=== PATIENT | female | born 1960 | race Caucasian/White ===

== ENCOUNTER 2017-08-18 03:00 | Emergency (ER) | payer MEDICAID, OTHER ==
--- NOTE | 2017-08-18 03:27 | EDPHY ---
H & P Source: Patient, EMS Exam Limitations: Clinical condition Time Seen by Provider: 08/18/17 03:01 HPI/ROS: HPI The patient presents brought in by ambulance on a mental health hold. She has had manic behavior as well as delusions and visual hallucinations for the last 1 day. She called the [facility] twice today because she thought someone was in her house. The deputy chief sheriff's eventually were concerned and called paramedics. The patient was somewhat agitated, swatting at the paramedics and was given Versed 5 mg IM. Otherwise, she is complaining of a cough and sore throat. Initial saturations were 89%. On review of records, in 2008 the patient was in the emergency department for similar presentation and was transferred to Psychiatry. REVIEW OF SYSTEMS Constitutional: No fever, no chills. Eyes: No discharge. ENT: No sore throat. Cardiovascular: No chest pain, no palpitations. Respiratory: No cough, no shortness of breath. Gastrointestinal: No abdominal pain, no vomiting. Genitourinary: No hematuria. Musculoskeletal: No back pain. Skin: No rashes. Neurological: No headache. PMHx: States lupus Soc Hx: Housed, denies drugs and alcohol PHYSICAL General Appearance: Alert, no distress, coughing occasionally Eyes: Pupils equal and round no pallor or injection ENT, Mouth: Mucous membranes moist Respiratory: There are no retractions, lungs are clear to auscultation Cardiovascular: Regular rate and rhythm Gastrointestinal: Abdomen is soft and non-tender, no masses, bowel sounds normal Neurological: A&O, moves all extremities Skin: Warm and dry, no rashes Musculoskeletal: Neck is supple non tender Extremities: symmetrical, full range of motion Psychiatric: Patient is oriented X 3, patient appears agitated (Riguzzi,Jessica) Constitutional: Initial Vital Signs Temperature (C) 36.9 C 08/18/17 03:42 Heart Rate 87 08/18/17 03:42 Respiratory Rate 20 08/18/17 03:42 Blood Pressure 151/88 H 08/18/17 03:42 O2 Sat (%) 91 L 08/18/17 03:42 O2 Delivery Mode Room Air Allergies/Adverse Reactions: Penicillins Allergy (Intermediate, Verified 08/18/17 03:42) Home Medications: Medication Instructions Recorded Ativan 09/08/13 Estrogen,Con/M-Progest Acet 09/08/13 Progesterone 09/08/13 levOFLOXACIN [Levofloxacin] 750 mg PO DAILY #7 tablet 08/18/17 LORazepam [Ativan (RX)] 1 mg PO Q12 PRN #5 tab 08/19/17 Medical Decision Making ED Course/Re-evaluation: I took over care of this patient at 4:30 p.m.. This patient is on an M1 hold for bipolar disorder and acute bang. The patient has been medically cleared but is waiting for behavioral health evaluation. The patient also has a pneumonia and is being treated with Levaquin. Levaquin is to be continued on disposition. 8:00 p.m., discussed with behavioral health. Plan now is to keep the patient here overnight and re-evaluated her in the morning. Care will be turned over to Dr. Kumar Venegas at 11:00 p.m.. (Razia Gill) 7:00 a.m.-I assumed care of this patient at shift change. She is a 57-year-old female with bipolar disorder who presents with acute bang. She also has URI symptoms, a possible infiltrate on chest x-ray and borderline oxygen saturation. Levaquin has been started for possible pneumonia. She has been evaluated by mental health. The plan is for her to be re-evaluated this morning and see if she is safe to be discharged home. The patient has been re-evaluated. Primary suspicion is anxiety at this time and evaluators are comfortable with outpatient followup for her. She will receive a referral to a walk-in clinic and crisis line. She is stable to drop M1 hold. (Gretel Rocha) Differential Diagnosis: 57-year-old female brought in by ambulance on an M1 hold for bang, delusions, visual hallucinations initially noted by the medical center's department earlier today when patient called because she thought someone was in the house. Differential diagnosis includes bipolar disorder with psychosis, depression with psychosis, pneumonia, urinary tract infection, drug use. Immediate emergency department, chest x-ray was performed which demonstrated possible left lower lobe infiltrate. The patient's labs revealed a leukocytosis , this in addition to her hypoxia and cough makes community-acquired pneumonia likely. I have ordered Levaquin for her. (Jessica Rivera) Other Provider: 57-year-old female who presents with manic behavior, delusions, and hallucinations. I assumed care of the patient at 7 o'clock, change of shift. Patient had been agitated initially was sedated with Versed IM by EMS. When I assumed care of the patient, she is sleeping. Patient cleared her sedation appropriately and provided a urine sample. This was positive for marijuana as well as benzodiazepines. Of note [place] [address] and a bicarbonate of 14. She was similarly noted to have a high white count on her previous psychiatric admission for [place] [address] patient 's bicarb has improved to 19. She did receive a L of normal saline following this lab evaluation. Patient's care was assumed at 4:[address] Demetrius Gill. At the current time we are awaiting evaluation by [facility]. Please note, patient will require Levaquin on discharge to treat her pneumonia. (Cici Nesbitt) 2300 care assumed by me from Dr. Gill pending mental health re- evaluation in the morning. Patient is noted to be on Levaquin for a possible pneumonia and will need to continue this medication on discharge. 0700 patient signed out to Dr. Rocha pending re-evaluation. No issues during my care this patient overnight. (Renny Venegas) - Data Points Laboratory Results: Laboratory Results 08/18/17 10:47 08/18/17 10:47 Medications Given: Discontinued Medications Acetaminophen (Tylenol) 1,000 mg PO EDNOW ONE Stop: 08/18/17 22:54 Last Admin: 08/18/17 23:10 Dose: 1,000 mg Diphenhydramine HCl (Benadryl) 25 mg PO EDNOW ONE Stop: 08/18/17 22:54 Last Admin: 08/18/17 23:10 Dose: 25 mg Sodium Chloride (Ns) 1,000 mls @ 0 mls/hr IV ONCE ONE; Wide Open PRN Reason: Protocol Stop: 08/18/17 10:39 Last Admin: 08/18/17 10:52 Dose: 1,000 mls Ibuprofen (Motrin) 600 mg PO EDNOW ONE Stop: 08/18/17 18:50 Last Admin: 08/18/17 18:52 Dose: 600 mg Ibuprofen (Motrin) 600 mg PO EDNOW ONE Stop: 08/19/17 09:19 Last Admin: 08/19/17 09:38 Dose: 600 mg Levofloxacin (Levaquin) 750 mg PO EDNOW ONE PRN Reason: Protocol Stop: 08/18/17 04:11 Last Admin: 08/18/17 05:12 Dose: 750 mg Levofloxacin (Levaquin) 750 mg PO DAILY ONE PRN Reason: Protocol Stop: 08/18/17 18:43 Last Admin: 08/18/17 18:52 Dose: 750 mg Lorazepam (Ativan Injection) 1 mg IVP EDNOW ONE Stop: 08/18/17 20:13 Last Admin: 08/18/17 20:24 Dose: 1 mg Lorazepam (Ativan Injection) 1 mg IVP EDNOW ONE Stop: 08/19/17 04:35 Last Admin: 08/19/17 04:38 Dose: 1 mg Lorazepam (Ativan Injection) 1 mg IVP EDNOW ONE Stop: 08/19/17 09:19 Last Admin: 08/19/17 09:38 Dose: 1 mg Departure - Departure Disposition: Home, Routine, Self-Care Clinical Impression: Acute psychosis, Anxiety Pneumonia Qualifiers: Pneumonia type: due to unspecified organism Laterality: left Lung location: lower lobe of lung Qualified Code(s): J18.1 - Lobar pneumonia, unspecified organism Condition: Good Instructions: Brief Psychotic Disorder (ED), Anxiety (ED), Pneumonia (ED) Additional Instructions: 1. Follow up with mental health services as discussed. 2. Take your Levaquin as prescribed. It is important to finish your entire course of antibiotics even if you are feeling better. 3. Return to the emergency department for any further concerns or worsening of conditions. Referrals: Tia Hunter MD [Medical Doctor] - 2-3 days without fail Prescriptions: levOFLOXACIN [Levofloxacin] 750 mg PO DAILY #7 tablet LORazepam [Ativan (RX)] 1 mg PO Q12 PRN #5 tab PRN Reason: Anxiety
[2017-08-18 03:28] LABS: % IMMATURE GRANULYOCYTES 0.9 % (0.0-1.1); ABSOLUTE IMMATURE GRANULOCYTES 0.17 10^3/uL (0.00-0.10); ADD DIFF? NO; ADD MORPH? NO; ADD SCAN? NO; ATYPICAL LYMPHOCYTE FLAG 0 (0-99); FRAGMENT RBC FLAG 20 (0-99); HEMOGLOBIN 11.5 g/dL (12.6-16.3); LEFT SHIFT FLG 0 (0-99); LIPEMIA HEMOLYSIS FLAG 90 (0-99); MEAN CELL HEMOGLOBIN CONCENTR. 33.8 g/dL (32.4-36.7); MEAN CELL VOLUME 76.7 fL (81.5-99.8); MEAN PLATELET VOLUME 10.1 fL (8.7-11.7); PLATELET CLUMPS FLAG 0 (0-99); PLATELET COUNT 300 10^3/uL (150-400); RED BLOOD CELL COUNT 4.43 10^6/uL (4.18-5.33); RED CELL DISTRIBUTION WIDTH 16.2 % (11.5-15.2)
[2017-08-18 03:41] LABS: ALANINE AMINOTRANSFERASE 38 IU/L (9-52); ALBUMIN 4.6 g/dL (3.5-5.0); ALKALINE PHOSPHATASE 100 IU/L (38-126); ANION GAP 19 mEq/L (8-16); ASPARTATE AMINOTRANSFERASE 76 IU/L (14-46); BILIRUBIN,TOTAL 1.1 mg/dL (0.1-1.4); CALCIUM 9.9 mg/dL (8.5-10.4); CARBON DIOXIDE 14 mEq/l (22-31); CHLORIDE 105 mEq/L (97-110); ETHANOL SERUM < 10 mg/dL (0-10); GLOMERULAR FILTRATION RATE 57; GLUCOSE 126 mg/dL (70-100); POTASSIUM 3.4 mEq/L (3.5-5.2); SODIUM 138 mEq/L (134-144); TOTAL PROTEIN 7.2 g/dL (6.3-8.2)
[2017-08-18 09:09] LABS: COLOR YELLOW; LEUKOCYTE ESTERASE,URINE NEGATIVE (NEGATIVE); NITRITE,URINE NEGATIVE (NEGATIVE)
[2017-08-18 09:19] LABS: MUCUS TRACE /lpf (NONE-1+)
[2017-08-18 09:20] LABS: RBC,URINE NONE SEEN /hpf (0-3)
[2017-08-18] MEDS ORDERED: NS 1,000 ML IV ONE (10:38)
[2017-08-18 10:54] LABS: % IMMATURE GRANULYOCYTES 0.9 % (0.0-1.1); ABSOLUTE IMMATURE GRANULOCYTES 0.13 10^3/uL (0.00-0.10); ADD DIFF? NO; ADD MORPH? NO; ADD SCAN? NO; ATYPICAL LYMPHOCYTE FLAG 10 (0-99); FRAGMENT RBC FLAG 0 (0-99); HEMATOCRIT 31.4 % (38.0-47.0); HEMOGLOBIN 10.9 g/dL (12.6-16.3); LEFT SHIFT FLG 0 (0-99); LIPEMIA HEMOLYSIS FLAG 90 (0-99); MEAN CELL HEMOGLOBIN CONCENTR. 34.7 g/dL (32.4-36.7); MEAN CELL VOLUME 74.9 fL (81.5-99.8); MEAN PLATELET VOLUME 9.8 fL (8.7-11.7); PLATELET CLUMPS FLAG 10 (0-99); PLATELET COUNT 269 10^3/uL (150-400); RED BLOOD CELL COUNT 4.19 10^6/uL (4.18-5.33); RED CELL DISTRIBUTION WIDTH 16.3 % (11.5-15.2)
[2017-08-18 11:07] LABS: ANION GAP 14 mEq/L (8-16); CALCIUM 9.2 mg/dL (8.5-10.4); CARBON DIOXIDE 19 mEq/l (22-31); CHLORIDE 105 mEq/L (97-110); CREATININE 0.8 mg/dL (0.6-1.0); GLOMERULAR FILTRATION RATE > 60; GLUCOSE 122 mg/dL (70-100); POTASSIUM 2.9 mEq/L (3.5-5.2); SODIUM 138 mEq/L (134-144)
[2017-08-18] MEDS ORDERED: IBUPROFEN 600 MG TAB PO ONE ×2 (13:49→18:49)
[2017-08-18] MEDS ORDERED: LORazepam 2 MG/ML INJ IVP ONE (20:12)
[2017-08-18 22:33] VITALS: RESP 18
[2017-08-18] MEDS ORDERED: ACETAMINOPHEN 500 MG TAB ONE (22:47)
[2017-08-18] MEDS ORDERED: diphenhydrAMINE 25 MG CAP PO ONE ×2 (22:47→22:53)
[2017-08-18] MEDS ORDERED: ACETAMINOPHEN 500 MG TAB PO ONE (22:53)
[2017-08-19] MEDS ORDERED: LORazepam 2 MG/ML INJ IVP ONE ×2 (04:34→09:18)
[2017-08-19] MEDS ORDERED: IBUPROFEN 600 MG TAB PO ONE (09:18)
[2017-08-19 11:25] VITALS: BP 124/78; PULSE 98; TEMP 97.5; O2SAT 97
--- NOTE | 2017-08-19 12:01 | ASDISCHSUM ---
Discharge Information Plan Status:Home with No Needs Medically Cleared to Leave: Discharge Date:08/19/2017 11:51 AM CM D/C Disposition:Home, Routine, Self-Care ADT D/C Disposition:Home, Routine, Self-Care Projected Discharge Date:08/19/2017 11:51 AM Transportation at D/C:Family Discharge Delay Reason: Follow-Up Date:08/19/2017 11:51 AM Discharge Slot: Final Diagnosis: Placement Information Patient Contact Information Contact Name:MK Relationship:Sister Address: Work Phone: City: 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
== END 2017-08-19 11:51 | disposition home or self-care (01) ==
LOC: EDUNIT#
DX: F23 Brief psychotic disorder (principal); J18.1 Lobar pneumonia, unspecified organism; E86.9 Volume depletion, unspecified
CPT/HCPCS: 80305; 96374; G0480; J2060

== ENCOUNTER 2018-03-08 11:40 | Inpatient (IN) | payer MEDICAID ==
--- NOTE | 2018-03-08 12:29 | EDPHY ---
H & P Time Seen by Provider: 03/08/18 12:11 HPI/ROS: CHIEF COMPLAINT: "My insides are coming out" HISTORY OF PRESENT ILLNESS: 57-year-old female known have ventral hernia history unable to reduce this for the past 4 days. She is able tolerate liquid diet only. Bowel movements have been normal. Passing gas as normal. No fever or chills. No trauma. No rash. PRIMARY CARE PROVIDER: Tony REVIEW OF SYSTEMS: A ten point review of systems was performed and is negative with the exception of the items mentioned in the HPI PAST MEDICAL & SURGICAL HISTORY: Known history of ventral hernia. Lupus SOCIAL HISTORY: Nonsmoker. PHYSICAL EXAM (Prior to examination, patient consented to physical exam, hands were washed and my usual and customary physical exam procedures followed) 1) GENERAL: obese, appears uncomfortable, pacing 2) HEAD: Normocephalic, atraumatic 3) HEENT: Pupils equal, round, reactive to light bilaterally. Sclera anicteric. 4) NECK: Full range of motion, no meningeal signs. 5) LUNGS: Clear auscultation bilaterally, no wheezes, no rhonchi, no retractions. 6) HEART: Regular rate and rhythm, no murmur, no heave, no gallop. 7) ABDOMEN: Ventral hernia noted. Tender to palpation. Unable to reduce without analgesia, 8) MUSCULOSKELETAL: Moving all extremities, no focal areas of tenderness, no obvious trauma. No peripheral edema or discoloration. 9) BACK: No CVA tenderness, no midline vertebral tenderness, no fluctuance, no step-off, no obvious trauma, no visual or palpable abnormality. 10) SKIN: No rash, no petechiae. 11) Psychiatric: Patient is oriented X 3, there is no agitation. DIFFERENTIAL DIAGNOSIS: In no particular include but limited to reducible hernia, strangulated hernia, incarcerated hernia Smoking Status: Never smoked Constitutional: Initial Vital Signs Temperature (C) 36.6 C 03/08/18 11:45 Heart Rate 78 03/08/18 11:45 Respiratory Rate 18 03/08/18 11:45 Blood Pressure 144/122 H 03/08/18 11:45 O2 Sat (%) 95 03/08/18 11:45 O2 Delivery Mode Nasal Cannula O2 (L/minute) 2 Allergies/Adverse Reactions: Penicillins Allergy (Intermediate, Verified 03/08/18 11:44) Home Medications: Medication Instructions Recorded Ativan 03/08/18 Hrt 03/08/18 Prednisone 03/08/18 traMADol 03/08/18 MDM/Departure - MDM Imaging Results: Imaging Impressions Abdomen CT 03/08/18 13:04 Impression: 1. Ventral hernia containing omental fat in the upper abdomen at the midline with haziness of the associated omental hernia suggesting development of omental infarct. 2. No CT evidence of appendicitis, abscess or bowel obstruction. 3. Left adnexal teratoma measuring 4.5 x 3 x 3 cm. 4. Moderate hiatal hernia. Findings discussed with Maru Wyatt PAC at 14:06 hour, 03/08/2018. Images reviewed myself Medications Given: Discontinued Medications Fentanyl (Sublimaze) 100 mcg IVP EDNOW ONE Stop: 03/08/18 12:32 Last Admin: 03/08/18 12:53 Dose: 100 mcg Fentanyl (Sublimaze) 50 mcg IVP ONCE ONE Stop: 03/08/18 15:27 Last Admin: 03/08/18 15:36 Dose: 50 mcg Sodium Chloride (Ns) 1,000 mls @ 0 mls/hr IV ONCE ONE PRN Reason: Wide Open Stop: 03/08/18 15:25 Last Admin: 03/08/18 15:36 Dose: 1,000 mls ED Course/Re-evaluation: 12:29 p.m.: Due to the patient's pain level I am unable to reduce this without administering analgesia 1st. Her last oral intake was a sip of coffee at approximately 11:00 a.m. Care of patient under supervision of secondary supervising physician Dr Hills with whom I discussed case . 1:05 p.m.: Analgesia administered and patient's pain is controlled. I was able to partially reduce her ventral hernia however when manual pressure is removed the hernia emerges a new 2:10 p.m.: Consultation with Dr. Thom Kulkarni who will come to the ER to evaluate patient. Patient's last p.o. Intake was a sip of coffee approximately 11:00 a.m. today. 3:50 p.m.: Dr. Thom Kulkarni in the ER to evaluate patient. Will plan on taking the patient to the operating room this evening. - Depart Disposition: [facility] Inpatient Acute Clinical Impression: Ventral hernia with gangrene Condition: Fair
[2018-03-08] MEDS ORDERED: fentaNYL 100 MCG/2 ML INJ IVP ONE ×2 (12:31→15:26)
[2018-03-08 13:04] LABS: PLATELET COUNT 444 10^3/uL (150-400)
[2018-03-08] MEDS ORDERED: IOPAMIDOL (ISOVUE-300) 100 ML BTL ONE (13:20)
[2018-03-08 14:35] LABS: INR 0.94 (0.83-1.16); PROTIME(PATIENT) 12.8 SEC (12.0-15.0)
--- NOTE | 2018-03-08 14:59 | CPEKG ---
Heart Rate: 60 RR Interval: 1000 P-R Interval: 196 QRSD Interval: 70 QT Interval: 436 QTC Interval: 436 P [place]: 6 QRS [place]: 67 T Wave [place]: 12 EKG Severity - NORMAL ECG - EKG Impression: SINUS RHYTHM Electronically Signed By: Shun Hills 08-Mar-2018 14:59:01
[2018-03-08] MEDS ORDERED: NS 1,000 ML IV ONE (15:24)
[2018-03-08] MEDS ORDERED: fentaNYL 100 MCG/2 ML INJ ONE ×4 (15:29→18:31)
[2018-03-08] MEDS ORDERED: BUPIVACAINE 0.5% 30 ML SDV ONE (16:15)
[2018-03-08] MEDS ORDERED: ONDANSETRON 4 MG/2 ML VIAL IVP PRN ×3 (16:27→18:32)
[2018-03-08] MEDS ORDERED: HYDROmorphONE/DILAUDID 1 MG/ML INJ IVP PRN ×2 (16:27→18:32)
--- NOTE | 2018-03-08 16:28 | PDANEPAE ---
ANE History of Present Illness Incarcerated ventral hernia ANE Past Medical History - Pulmonary History Hx Oxygen in Use at Home: No Hx Sleep Apnea: No - Endocrine History Hx Diabetes: No ANE Review of Systems Review of Systems: ANE Patient History - Allergies Allergies/Adverse Reactions: Penicillins Allergy (Intermediate, Verified 03/08/18 11:44) - Home Medications Home Medications: Ativan 03/08/18 [Last Taken Unknown] Hrt 03/08/18 [Last Taken Unknown] Prednisone 03/08/18 [Last Taken Unknown] traMADol 03/08/18 [Last Taken Unknown] - NPO status NPO Since - Liquids (Date): 03/08/18 NPO Since - Liquids (Time): 10:15 NPO Since - Solids (Date): 03/07/18 NPO Since - Solids (Time): 21:00 - Anes Hx Anes Hx: no prior problems - Smoking Hx Smoking Status: Never smoked ANE Labs/Vital Signs - Labs Result Diagrams: 03/08/18 12:45 03/08/18 12:45 - Vital Signs Blood Pressure: 138/87 Heart Rate: 60 Respiratory Rate: 16 O2 Sat (%): 97 Height: 165.1 cm Weight: 77.111 kg ANE Physical Exam - Airway Neck exam: FROM Mallampati Score: Class 2 Mouth exam: dentures - Pulmonary Pulmonary: no respiratory distress - Cardiovascular Cardiovascular: regular rate and rhythym - ASA Status ASA Status: II, E ANE Anesthesia Plan Anesthesia Plan: general endotracheal anesthesia
[2018-03-08] MEDS ORDERED: MIDAZOLAM 2 MG/2 ML VIAL IVP ONE ×2 (16:29→18:49)
[2018-03-08] MEDS ORDERED: NS W/ 20 KCl/L 1,000 ML IV SCH (16:30)
[2018-03-08] MEDS ORDERED: MIDAZOLAM 2 MG/2 ML VIAL ONE ×2 (16:33→18:51)
[2018-03-08] MEDS ORDERED: LR 1,000 ML IV ONE (16:34)
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
[2018-03-08] MEDS ORDERED: PROPOFOL 200 MG/20 ML VIAL ONE (16:36)
[2018-03-08] MEDS ORDERED: LIDOCAINE 2% 5 ML SDV ONE (16:38)
[2018-03-08] MEDS ORDERED: ceFAZolin 2 GM/SWFI 2 GM/20 ML SYR IVP ONE (16:39)
[2018-03-08] MEDS ORDERED: ROCURONIUM 50 MG/5 ML VIAL ONE (16:39)
[2018-03-08] MEDS ORDERED: ONDANSETRON 4 MG/2 ML VIAL ONE (16:39)
[2018-03-08] MEDS ORDERED: DEXAMETHASONE 4 MG/ML VIAL ONE (17:25)
[2018-03-08] MEDS ORDERED: NALOXONE HCL 0.4 MG/ML INJ IVP PRN (17:43)
[2018-03-08] MEDS ORDERED: PROMETHAZINE HCL 25 MG/ML INJ IVP PRN (17:43)
[2018-03-08] MEDS ORDERED: SUGAMMADEX SODIUM 200 MG/2 ML VIAL IVP ONE (18:09)
--- NOTE | 2018-03-08 18:31 | POSTOPPROG ---
Post Op Note Date of Operation: 03/08/18 Surgeon: Thom Kulkarni Anesthesiologist: MARCO Anesthesia: GET(General Endotracheal) Pre-op Diagnosis: INCARCERATED VENTRAL HERNIA AND UMBILICAL HERNIA Post-op Diagnosis: SAME Indication: PAIN Procedure: OPEN REPAIR INCARCERATED VH WITH MESH AND UMB HERNIA REPAIR Findings: INCARCERATED OMENTUM IN 3CM DEFECT/ 2CM UMBILICAL DEFECT Inf/Abcess present in the surg proc area at time of surgery?: No Depth: Organ Space EBL: Minimal Complications: 0 Specimen(s): VENTRAL AND UMBILICAL HERNIA SACS
[2018-03-08] MEDS ORDERED: ONDANSETRON DISINTEGRATING 4 MG TAB PO PRN (18:32)
[2018-03-08] MEDS ORDERED: OXYCODONE/APAP 5/325 TAB PO PRN (18:32)
[2018-03-08] MEDS: fentaNYL 100 MCG/2 ML INJ IVP PRN ×2 (18:34→19:28)
[2018-03-08] MEDS ORDERED: ALBUTEROL 60 PUFFS/8 GM MDI IH PRN (18:34)
[2018-03-08] MEDS ORDERED: hydrOXYzine HCL 25 MG TAB PO PRN (18:34)
[2018-03-08] MEDS ORDERED: KETOROLAC 30 MG/1 ML SDV IVP ONE (18:35)
[2018-03-08] MEDS ORDERED: HYDROmorphONE/DILAUDID 2 MG/ML INJ ONE (18:35)
--- NOTE | 2018-03-08 18:36 | POSTANESTH ---
Post Anesthetic Evaluation Cardiovascular Status: Similar to Pre-Op Cond Respiratory Status: Similar to Pre-op Cond. Level of Consciousness/Mental Status: Can Participate in Eval Pain Control: Inadeq, Add Tx Required (Giving pain meds) Nausea/Vomiting Control: Adequate, Prn Tx Ordered Complications Possibly Related to Anesthesia: None Noted
[2018-03-08] MEDS: HYDROmorphONE/DILAUDID 2 MG/ML INJ IVP PRN ×2 (18:39→18:46)
[2018-03-08] MEDS ORDERED: KETOROLAC 30 MG/1 ML SDV ONE (18:40)
[2018-03-08] MEDS ORDERED: D5W 1/2 NS W/ 20 KCl/L 1,000 ML IV SCH (18:45)
[2018-03-08] MEDS ORDERED: CEPACOL LOZENGE PO PRN (19:22)
[2018-03-08] MEDS ORDERED: D5W 1/2 NS 1,000 ML IV SCH (20:30)
[2018-03-08] MEDS: traMADol 50 MG TAB PO SCH (20:51)
[2018-03-08] MEDS: DOCUSATE SODIUM 100 MG CAP PO SCH (20:51)
[2018-03-08] MEDS: FAMOTIDINE 20 MG TAB PO SCH ×2 (20:51→22:04)
[2018-03-08] MEDS: LORazepam 1 MG TAB PO PRN (20:51)
[2018-03-08] MEDS: KETOROLAC 15 MG/1 ML SDV IVP SCH (23:12)
[2018-03-09] MEDS: OXYCODONE/APAP 5/325 TAB PO PRN ×2 (02:46→08:46)
[2018-03-09] MEDS: KETOROLAC 15 MG/1 ML SDV IVP SCH ×4 (04:56→23:59)
[2018-03-09] MEDS: traMADol 50 MG TAB PO SCH ×2 (08:39→20:56)
[2018-03-09] MEDS: DOCUSATE SODIUM 100 MG CAP PO SCH ×2 (08:39→20:56)
[2018-03-09] MEDS: FAMOTIDINE 20 MG TAB PO SCH ×2 (08:39→19:11)
[2018-03-09] MEDS: LORazepam 1 MG TAB PO PRN ×2 (08:39→19:24)
[2018-03-09] MEDS: ESTRADIOL 0.5 MG TAB PO SCH (08:40)
[2018-03-09] MEDS ORDERED: PNEUMOCOCCAL 0.5ML VACCINE VIAL IM ONE (08:52)
--- NOTE | 2018-03-09 09:02 | SOAPPROG ---
SOAP Progress Note Assessment/Plan: Assessment/Plan: 57-year-old female status post repair of incarcerated epigastric ventral hernia and umbilical hernia, postoperative day 1. Regular diet. Transitioned to oral pain meds. Remove dressing. Okay to leave open to air but patient prefers it to be replaced. Okay to shower over Steri-Strips. Buff cap IVF. DC SCDs--patient did not tolerate this. Brandan hose ordered, and OOB today. Dispo: pending. Home later today if does well with diet and pain control. May not be ready until tomorrow. S: teary. didn't sleep. more pain than she expected. SCDs kept her up. O: alert, mild distress, tearful no wob rrr abd soft, inc cdi 03/09/18 08:59 Objective: Vital Signs Temp Pulse Resp BP Pulse Ox 36.6 C 69 20 150/103 H 97 03/09/18 07:55 03/09/18 07:55 03/09/18 07:55 03/09/18 07:55 03/09/18 07:55 Laboratory Results 03/09/18 04:45 03/09/18 04:45 03/08/18 03/09/18 03/10/18 05:59 05:59 05:59 Intake Total 3052 Output Total 900 400 Balance 2152 -400 PT 12.8 SEC (12.0-15.0) 03/08/18 12:45 INR 0.94 (0.83-1.16) 03/08/18 12:45 ICD10 Worksheet Patient Problems: Problems Problem Status Onset Ventral hernia with gangrene Acute
[2018-03-09] MEDS: CYANO/VITAMIN B12 1000 MCG TAB PO SCH (13:32)
[2018-03-09] MEDS: HYDROmorphONE/DILAUDID 2 MG TAB PO PRN ×2 (13:33→19:31)
--- NOTE | 2018-03-09 16:27 | PDMN ---
Medical Necessity Medical necessity: Change to IP, as of 03/09/18, per PA; los >2 mn s/p repair of incarcerated ventral & umbilical hernia pod #1; admit for further monitoring, IV pain meds/antiemetics & IVFs; per progress note & order 03/09/18
--- NOTE | 2018-03-09 17:15 | ASMTCASEMG ---
Living Arrangements What is your living Answers: Alone arrangement? Who do you live with? Type Of Residence What kind of residence do Answers: House you live in? Discharge Plan Comments Coordination Status Comments Notes: CM spoke w/ NADEEM Whitney regarding d/c POC. Pt is a 57 y/o female admitted for a incarcerated ventral omental hernia. Pt will most likely d/c independent when medically stable. No therapies ordered at this time. CM available for changes. Plan: Independent Date Signed: 03/09/2018 04:13 PM Electronically Signed By:SHANELL Whitehead
[2018-03-09] MEDS ORDERED: CALCIUM CARBONATE 500 MG CHEWABLE TAB PO PRN (19:45)
[2018-03-10] MEDS: OXYCODONE/APAP 5/325 TAB PO PRN ×2 (02:40→08:21)
[2018-03-10] MEDS: KETOROLAC 15 MG/1 ML SDV IVP SCH ×2 (05:20→11:31)
[2018-03-10 07:49] VITALS: BP 153/102
[2018-03-10] MEDS: DOCUSATE SODIUM 100 MG CAP PO SCH (08:23)
[2018-03-10] MEDS: ESTRADIOL 0.5 MG TAB PO SCH (08:23)
[2018-03-10] MEDS: FAMOTIDINE 20 MG TAB PO SCH (08:23)
[2018-03-10] MEDS: traMADol 50 MG TAB PO SCH (08:24)
[2018-03-10] MEDS: CYANO/VITAMIN B12 1000 MCG TAB PO SCH (08:27)
--- NOTE | 2018-03-10 09:31 | SOAPPROG ---
SOAP Progress Note Assessment/Plan: Assessment/Plan: 57-year-old female status post repair of incarcerated epigastric ventral hernia and umbilical hernia, postoperative day 1. Doing better today. Pain better controlled. Walked a lot yesterday. Anxiety improved. D/c to home today. alert, nad ctab rrr abd soft inc cdi hernia repairs intact 03/10/18 09:30 Objective: Vital Signs Temp Pulse Resp BP Pulse Ox 36.7 C 70 18 153/102 H 96 03/10/18 07:46 03/10/18 07:46 03/10/18 07:46 03/10/18 07:46 03/10/18 07:46 Laboratory Results 03/09/18 04:45 03/09/18 04:45 03/09/18 03/10/18 03/11/18 05:59 05:59 05:59 Intake Total 2052 820 Output Total 900 800 Balance 1152 20 PT 12.8 SEC (12.0-15.0) 03/08/18 12:45 INR 0.94 (0.83-1.16) 03/08/18 12:45 ICD10 Worksheet Patient Problems: Problems Problem Status Onset Ventral hernia with gangrene Acute
--- NOTE | 2018-03-10 09:44 | GDS ---
[f rep st] DISCHARGE SUMMARY DISCHARGE DIAGNOSES: 1. Incarcerated epigastric ventral hernia. 2. Umbilical hernia. 3. Pain and anxiety. PROCEDURES: Open repair of incarcerated ventral hernia and umbilical hernia with Dr. Kulkarni. SPECIAL TESTS: CT scan of the abdomen and pelvis showed a ventral hernia containing omental fat in t he upper abdomen at the midline with haziness of the associated omental hernia suggesting development of omental infarct. Also left adnexal teratoma and moderate hiatal hernia. Please see reports for details. Chest x-ray showed nothing acute, and ECG was normal in sinus rhythm. HOSPITAL COURSE: The patient is a 57-year-old female who reported to the emergency department with c omplaints of severe epigastric abdominal pain. She was found to have an incarcerated ventral hernia as well as a reducible umbilical hernia. She went to the operating room with Dr. Kulkarni and underwent surgical repair. The procedure was uncomplicated, and she tolerated it well. The patient's postoperative course was complicated by pain and anxiety issues. Her diet was advanced without event. Her pain meds were adjusted. Ativan helped with her anxiety. Ultimately she was di scharged to home on postoperative day 2 in stable condition with plans for outpatient followup. She was given prescriptions for ibuprofen, Percocet, and Ativan. The addictive nature of using benzodiaz epines and opioids together was discussed. She will be following up with us in 2 weeks or sooner if she has problems or concerns. All limitations were discussed. /[id number]/MODL
[2018-03-10] MEDS: LORazepam 1 MG TAB PO PRN (11:30)
== END 2018-03-10 12:20 | disposition home or self-care (01) | DRG 227 ==
LOC: OBSVTOIN 16:28 → F3E 19:55
PROVIDERS: ADMIT Surgery; ATTEND Surgery
DX: K43.6 Other and unspecified ventral hernia with obstruction, without gangrene (principal); K44.9 Diaphragmatic hernia without obstruction or gangrene; F41.9 Anxiety disorder, unspecified; M32.9 Systemic lupus erythematosus, unspecified
CPT/HCPCS: 82947-QW; 96374; C1781; G0009; G0378; J1100; J1170; J1885; J1956; J2250; J2405; J2704; J3010; Q9967